=== PATIENT | female | born 1995 | race Caucasian/White ===

== ENCOUNTER 2018-02-21 08:21 | Emergency (ER) | payer OTHER ==
[2018-02-21 08:29] VITALS: BP 142/95; PULSE 89; TEMP 98.2
--- NOTE | 2018-02-21 08:43 | PDOC ---
History of Present Illness - General Chief Complaint: CVA/TIA Stated Complaint: NUMBNESS Time Seen by Provider: 02/21/18 08:27 - History of Present Illness Initial Comments: 02/21/18 08:38 22 yo F with no significant pmh who p/w diffuse facial tingling. Patient reports driving home yesterday evening from work with acute onset of facial tingling of upper and lower face. Tingling now improved, limited to lower face. No other complaints. No identifiable triggers or alleviators. Reports similar history of self limiting facial tingling months ago in [place]. Denies facial pain, or rash. Denies contact exposure. Patient denies [place], tinnitus, hearing loss, vision change, cough, drooling, dysphagia, odynophagia, wheezing, palpitations, rash, N/V, F,C, CP, SOB, urinary complaints, abdominal pain, diarrhea, constipation, lightheadedness, weakness. PMHx: as noted above ROS: as noted SHx: Denies Etoh, tobacco use, IVDA Allergies: NKDA Past History - Past Medical History Allergies/Adverse Reactions: Allergies Allergy/AdvReac Type Severity Reaction Status Date / Time formaldehyde Allergy Verified 02/21/18 08:25 Home Medications: Ambulatory Orders Aveed ASDIR 02/21/18 - Suicide/Smoking/Psychosocial Hx Smoking History: Never smoked Review of Systems - Review of Systems Comments:: 02/21/18 08:42 GENERAL/CONSTITUTIONAL: No fever or chills. No weakness. HEAD, EYES, EARS, NOSE AND THROAT: No change in vision. No ear pain or discharge. No sore throat. CARDIOVASCULAR: No chest pain or shortness of breath RESPIRATORY: No cough, wheezing, or hemoptysis. GASTROINTESTINAL: No nausea, vomiting, diarrhea or constipation. GENITOURINARY: No dysuria, frequency, or change in urination. MUSCULOSKELETAL: No joint or muscle swelling or pain. No neck or back pain. SKIN: No rash NEUROLOGIC: + change in facial sensation. No headache, vertigo, loss of consciousness, or change in strength. ENDOCRINE: No increased thirst. No abnormal weight change HEMATOLOGIC/LYMPHATIC: No anemia, easy bleeding, or history of blood clots. ALLERGIC/IMMUNOLOGIC: No hives or skin allergy. *Physical Exam - Vital Signs Last Vital Signs Temp Pulse Resp BP Pulse Ox 98.2 F 89 16 142/95 98 10/20/18 08:26 02/21/18 08:26 02/21/18 08:26 02/21/18 08:26 02/21/18 08:26 - Physical Exam Comments: 02/21/18 08:43 GENERAL: Awake, alert, and fully oriented, in no acute distress HEAD: No signs of trauma, normocephalic, atraumatic EYES: PERRLA, EOMI, sclera anicteric, conjunctiva clear ENT: Auricles normal inspection, hearing grossly normal, nares patent, oropharynx clear without exudates. Moist mucosa NECK: Normal ROM, supple, no lymphadenopathy, JVD, or masses LUNGS: No distress, speaks full sentences, clear to auscultation bilaterally HEART: Regular rate and rhythm, normal S1 and S2, no murmurs, rubs or gallops, peripheral pulses normal and equal bilaterally. EXTREMITIES : Normal inspection, Normal range of motion, no edema. No clubbing or cyanosis. NEUROLOGICAL: Cranial nerves II through XII grossly intact. Normal speech, normal gait, no focal sensorimotor deficits SKIN: Warm, Dry, normal turgor, no rashes or lesions noted ED Treatment Course - LABORATORY CBC & Chemistry Diagram: 02/21/18 09:00 02/21/18 09:00 Medical Decision Making - Medical Decision Making 02/21/18 08:43 22 yo F with no significant pmh who p/w diffuse facial tingling. VSS, AF. Physical exam unremarkable. Negative neuro deficits on physical exam. Low suspcion CVA/TIA. Will consider anxiety related disorder. Low suspicion bells palsy, isabella capone syndrome. Will assess for hyperglycemia, electrolyte abnml, metabolic or toxic derangements, acid -base disturbances, or infection. Ed Course: CBC,CMP,Mg 02/21/18 09:34 CBC,CMP: Unremarkable HCG: Neg Patient stable for d/c with return precautions. Advised to f/u with PMD. 02/21/18 10:23 *DC/Admit/Observation/Transfer Diagnosis at time of Disposition: Facial tingling sensation - Discharge Dispostion Disposition: HOME Condition at time of disposition: Stable Decision to Admit order: No - Referrals - Patient Instructions Printed Discharge Instructions: DI for Numbness/tingling Additional Instructions: Please return to the emergency department with any new or worsening symptoms or concerns. Please follow up with your primary care physician within 72 hours. - Post Discharge Activity Forms/Work/School Notes: Back to School - Attestations Physician Attestion: 02/21/18 08:46 I attest to the information provided in this note.
[2018-02-21 09:18] LABS: BASO % 0.5 % (0-2.0); EOS % 3.8 % (0-4.5); HEMATOCRIT 43.7 % (32.4-45.2); HEMOGLOBIN 13.9 GM/dL (10.7-15.3); MCH 26.6 pg (25.7-33.7); MCHC 31.9 g/dl (32.0-36.0); MEAN CELL VOLUME 83.5 fl (80-96); MEAN PLT VOLUME 8.9 fl (7.5-11.1); MONO % 9.3 % (3.8-10.2); NEUT % 43.4 % (42.8-82.8); PLATELET COUNT 328 K/MM3 (134-434); RBC 5.23 M/mm3 (3.60-5.2); RDW 13.9 % (11.6-15.6); WHITE BLOOD COUNT 7.8 K/mm3 (4.0-10.0)
[2018-02-21 09:29] LABS: ALBUMIN 4.1 g/dl (3.4-5.0); ALK PHOS 76 U/L (45-117); ANION GAP 9 MMOL/L (8-16); BILIRUBIN,TOTAL 0.4 mg/dL (0.2-1); BLOOD UREA NITROGEN 10 mg/dL (7-18); CHLORIDE 109 mmol/L (98-107); CO2 24 mmol/L (21-32); CREATININE 0.7 mg/dL (0.55-1.3); GLUCOSE,RANDOM 88 mg/dL (74-106); POTASSIUM 3.9 mmol/L (3.5-5.1); SGOT/AST 18 U/L (15-37); SGPT/ALT 24 U/L (13-61); SODIUM 142 mmol/L (136-145); TOT PROT 7.8 g/dl (6.4-8.2)
--- NOTE | 2018-02-21 10:38 | PDOC ---
Attending Attestation - Resident Resident Name: Darren Romoson - ED Attending Attestation I have performed the following: I have examined & evaluated the patient, The case was reviewed & discussed with the resident, I agree w/resident's findings & plan - HPI HPI: 02/21/18 10:34 22-year-old female with no medical history presenting with facial tingling beginning last night, so she with mild headache, symptoms resolved. Stressors include having several jobs and going to college. Denies infectious prodrome, URI symptoms, vomiting, weakness, gait instability. Denies blurry vision or hearing disturbances. Has had a similar episode previously when she was in [place] secondary to elevation changes. Denies precipitants or any traumas. denies drug use, etoh, smoking or medications. - Physicial Exam PE: 02/21/18 10:35 NAD, well appearing, TM clear, no lesions. normal external auditory canal. MMM, nl conjunctiva, anicteric; neck supple. lungs clear, RRR, abdomen soft nontender. SAEED x4, no focal neuro deficits. No peripheral edema. normal color for ethnicity, WWP. Alert, oriented to person time and place. CN II-XII grossly intact. 5/5 masseter strength. no facial nerve palsy. Strength prox and distally 5/5 throughout. Sensation grossly intact to light touch. SAEED x4. No cerebellar signs , no dysmetria, bilateral finger to nose and heel to ray equal and symmetric. Speech clear. - Medical Decision Making 02/21/18 10:36 22-year-old female with no medical history presenting with facial paresthesias, since resolved. Differential diagnosis includes Dash's pulse 80, Eloise Brewer syndrome, viral syndrome, anxiety reaction, migraine, tension headache, hyperventilation, electrolyte disturbances, . Vital signs are within normal limits. Laboratory results and electrolytes normal , test also normal. no CT imaging indicated at this time as normal exam and clinical impression. Unremarkable neurologic exam, gait stable, no cerebellar signs were focal neurologic deficits. No acute events in the emergency department, remains well- appearing. Reassurance provided, stress reduction advised, follow up with primary care doctor, may need neurology follow-up as she does have a family history and grandmother with multiple sclerosis. Precautions provided, return for worsening symptoms which may include visual or hearing disturbances, worsening headache, syncope, chest pain, respiratory distress, vomiting, weakness, paresthesias or other concerns. Vision and mother verbalized understanding of impression and plan, discharged stable condition.
== END 2018-02-21 10:45 | disposition home or self-care (01) ==
LOC: JER 08:21
DX: R20.2 Paresthesia of skin (principal)
CPT/HCPCS: 36415; 80053; 83735; 84703; 85025; 99283-25